=== PATIENT | male | born 1945 | race Caucasian/White ===

== ENCOUNTER 2016-07-25 15:38 | Inpatient (IN) | payer OTHER, BC ==
[~2016-07-25] VITALS: Ht 175.3 cm; Wt 63.5 kg
--- NOTE | ~2016-07-25 | EKG ---
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 : 1945 Requested By: Olaf Stapleton Order Number: [id number] MD: Juventino Mcmanus Measurements Intervals [place] Rate: 84 P: 79 UT: 136 QRS: 91 QRSD: 84 T: 76 QT: 350 QTc: 414 Interpretive Statements Sinus rhythm Low voltage with right axis deviation Minimal ST elevation, inferior leads No previous ECG available for comparison Electronically Signed On 07-26-2016 8:59:18 CDT by Juventino Mcmanus [email or web address] <ELECTRONICALLY SIGNED> By: Juventino Mcmanus MD, [facility] 07/26/16 0859 D: [id number] Juventino Mcmanus MD, FACC /EPI
--- NOTE | ~2016-07-25 | EKG ---
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1945 Requested By: Chino Lockett Order Number: [id number] MD: Juventino Mcmanus Measurements Intervals [place] Rate: 114 P: 71 HI: 123 QRS: 92 QRSD: 87 T: 78 QT: 305 QTc: 421 Interpretive Statements Sinus tachycardia Artifact in multiple lead(s) Poor R-wave progression Compared to ECG 07/25/2016 16:07:08 probably no differences, allowing for marked baseline artifact Electronically Signed On 07-31-2016 12:59:11 CDT by Juventino Mcmanus [email or web address] <ELECTRONICALLY SIGNED> By: Juventino Mcmanus MD, [facility] 07/31/16 1259 0810 0810 Juventino Mcmanus MD, [facility] /EPI
--- NOTE | ~2016-07-25 | HC ---
[facility] [place] [address] CONSULTATION Name: MARCIA MARCANO Room #: 461- ADM IN M.R.#: [id number] Admission: 07/25/16 Attend Phys: Chino Lockett MD Discharge: Date of : 41 Report #: [id number] THIS REPORT FOR: //name// CC: Marcia Rosario DATE OF SERVICE: 07/31/2016 PULMONARY CONSULTATION PRIMARY CARE PHYSICIAN: Dr. Moose Rosario. REFERRAL PHYSICIAN: Triston Leung M.D. REASON FOR REFERRAL: Acute respiratory failure. HISTORY OF PRESENT ILLNESS: The patient is a 71-year-old white male with known COPD, presents to the Emergency Room with progressive dyspnea. A pulmonary consultation was requested and patient developed worsening hypoxia since admission. The patient has known COPD. He is normally followed by Dr. Portillo longitudinally. Review of his prior chest CT shows diffuse bullous disease suggestive of emphysema in type. The patient has smoked, but quit many years ago. Normally, he is on Spiriva, Breo, Ventolin. Patient is on 2 liters of O2 chronically. He was in his usual state of health until about 2 weeks prior to presentation when he started to develop congestion, rhinorrhea, but he thinks this started when he was out in the cold when the weather changed. He then developed a productive cough of purulent sputum. He was admitted 07/25/2016. Earlier today, following a nebulized treatment, the patient states that he began to feel jittery, nervous, anxious and then subsequently developed progressive dyspnea. He was also borderline hypotensive. He was transferred to the ICU. The patient otherwise denies any chest pain, hemoptysis. Denies any past history of venous thromboembolic disease. His serum creatinine is 1.4. He is better now on noninvasive positive pressure ventilation. PAST MEDICAL HISTORY: Notable for COPD as mentioned above, severity unknown, he is on 2 liters of O2 for the past 2 years. Past history of tobacco use, but [facility] [address] [place] [address] CONSULTATION Name: MARCIA MARCANO Room #: [address] [place] [address] [place] ..#: [id number] Admission: 07/25/16 Attend Phys: Chino Lockett MD Discharge: Date of : 41 Report #: [id number] quit smoking 14 years ago. He has a history of hypotension. PAST SURGICAL HISTORY: Noncontributory. HOME MEDICATIONS: As mentioned above along with lisinopril/hydrochlorothiazide. FAMILY HISTORY: Noncontributory. SOCIAL HISTORY: Tobacco, as mentioned above. He is and lives with his . He drinks rarely. REVIEW OF SYSTEMS: As mentioned above, otherwise 10-point system review negative. PHYSICAL EXAMINATION: GENERAL: He is alert, oriented x 3, in moderate distress. VITAL SIGNS: Temperature is 98.2 degrees Fahrenheit, pulse is 110. Respiratory rate is 26, blood pressure is 108/58 mmHg, saturation 98%. HEENT: Normocephalic, atraumatic. NECK: Supple, without any lymphadenopathy or thyromegaly. CHEST: Breath sounds are decreased bilaterally with moderately prolonged expiratory phase. Mild expiratory wheezes are noted. CARDIOVASCULAR: Normal S1, S2. No murmurs or gallop. There is no JVD. There is no carotid bruit and pulses are 2+/4+ bilaterally. ABDOMEN: Soft, nontender, no organomegaly or masses felt. EXTREMITIES: There is no edema, cyanosis or clubbing. NEUROLOGIC: He is grossly intact. LABORATORY DATA: Chest x-ray shows hyperextended lung aleman without any obvious infiltrates. Leg Doppler ultrasound was negative for DVT, baseline creatinine appears to be 1.4. His previous creatinine from 2012 was 1.6, WBC is 17,600, hemoglobin is 12.0, platelets are normal. Albumin 3.9. Arterial blood gas earlier today revealed pH 7.31, pCO2 of 66, pO2 90 on 8 liters of O2. IMPRESSION: 1. Acute respiratory distress in this 71-year-old white male with COPD. His acute distress may be related to worsening exacerbation of COPD. No obvious pneumonia. Pulmonary embolus is felt to be less likely as the patient has been on DVT prophylaxis. It is unclear if nebulized therapy may be causing paradoxical worsening of dyspnea and bronchospasm. We will observe closely. 2. COPD, severity unknown, with exacerbation. 3. Chronic kidney insufficiency. As mentioned above, I do not think the patient has pulmonary embolus. Leg Doppler ultrasound is negative. With chronic kidney disease, this would rule out doing CT chest angiogram for now. RECOMMENDATION: We will continue noninvasive positive pressure ventilation as [address] [address] CONSULTATION Name: MARCIA MARCANO Room #: 461-P ADM IN M.R.#: [id number] Admission: 07/25/16 Attend Phys: Chino Lockett MD Discharge: Date of : 41 Report #: [id number] needed, increase corticosteroids. We will continue nebulized bronchodilator therapy and observe closely to see if in fact it is causing paradoxical bronchospasm. Would also try to keep saturation around 88-90% as this may cause paradoxical worsening of hypercapnia. We will continue doxycycline for now. In terms of borderline hypotension, this may be related to increased intrathoracic pressure resulting in decrease cardiac output. I do not think it is related to pulmonary embolus or with a negative Doppler ultrasound along with patient being on DVT prophylaxis. We will continue to monitor hypotension closely. If the patient becomes persistently hypotensive, we may consider doing a ventilation perfusion scan and echocardiogram. DVT and GI prophylaxis will be addressed. Thank you for this consultation. <ELECTRONICALLY SIGNED> By: Modesto Lynch MD 08/02/16 1146 1107 2232 Modesto Lynch MD /nt
--- NOTE | ~2016-07-25 | H ---
[facility] [place] [address] HISTORY AND PHYSICAL Name: MARCIA MARCANO Room #: 459-P ADM IN M.R.#: [id number] Admission: 07/25/16 Attend Phys: Abdulkadir Blood MD Discharge: Date of : 41 Report #: [id number] THIS REPORT FOR: //name// CC: Abdulkadir Connelly MD DATE OF SERVICE: 07/25/2016 PRIMARY CARE DOCTOR: Juwna Connelly MD. CHIEF COMPLAINT: Shortness of breath. HISTORY OF PRESENT ILLNESS: The patient is a 71-year-old male with a history of chronic respiratory failure on 2 liters of home O2, COPD, followed by Dr. Jovanny Portillo, presented to the ER secondary to shortness of breath. He indicates that symptoms started about 2 weeks ago and then progressively worsened. He has used his inhalers at home without any complete relief. He is also reporting sinus drainage, productive cough with ongoing mucous, but no fever or chills. Symptoms are worse with exertion. He finally came to the ER and was found to desaturate in to 80s on 2 liters with ambulation. I was asked to admit him for further management and care. He quit smoking about 14 years ago and has been on oxygen now for 2 years. He denies any other medical problems including heart problems. PAST MEDICAL HISTORY: COPD and hypertension. MEDICATIONS: He is on Spiriva one inhalation daily, Breo one inhalation daily, and albuterol p.r.n., lisinopril/hydrochlorothiazide 20/12.5 one daily. ALLERGIES: None. SOCIAL HISTORY: He quit smoking 14 years ago, was smoking 2 packs per day and drinks very infrequently, lives with his locally. REVIEW OF SYSTEMS: A 14-point review of system was conducted, all negative except for above. ALLERGIES: None. FAMILY HISTORY: Reviewed and noncontributory. PHYSICAL EXAMINATION: VITAL SIGNS: Temperature of 98, pulse of 91, blood pressure of 152/84, O2 sat 95% on 2 liters. GENERAL: He is awake, alert, answering questions appropriately, in no acute [facility] [address] [place] [address] HISTORY AND PHYSICAL Name: MARCIA MARCANO Room #: 459-P [facility] IN M.R.#: [id number] Admission: 07/25/16 Attend Phys: Abdulkadir Blood MD Discharge: Date of : 41 Report #: [id number] respiratory distress. HEENT: Normocephalic and atraumatic. Pupils are equal. NECK: Supple. CARDIOVASCULAR: Regular rate and rhythm. No murmurs. LUNGS: Clear to auscultation bilaterally. Decreased at the bases, occasional wheeze, coarse breath sounds. ABDOMEN: Soft. No distention, no tenderness. EXTREMITIES: No edema. NEUROLOGIC: Nonfocal. LABS AND TESTING: Influenza was negative. CMP: Sodium 136, potassium 4.9, BUN and creatinine 19 and 1.2, total CO2 of 33. LFTs are negative. White count of 9.1, H and H of 12 and 38. MCV of 84. Chest x-ray was negative for anything acute. EKG: Normal sinus rhythm at rate 84. ASSESSMENT AND PLAN: 1. Chronic obstructive pulmonary disease exacerbation. We will continue aggressive pulmonary toiletry, O2 support, and steroids. 2. Upper respiratory infection. We will start doxycycline and also some cold and sinus medications. 3. Hypertension. Continue home meds with holding parameters. 4. Deep venous thrombosis prophylaxis with Lovenox. By: [id number] [id number] Edwina Blood MD /nt
--- NOTE | ~2016-07-25 | 2DMMODE ---
[facility] [address] [place] [address] 2 D/M-MODE ECHOCARDIOGRAM Name: MARCIA MARCANO JAQUELINE Room #: 237-P ADM IN M.R.#: [id number] Admission: 07/25/16 Attend Phys: Lori Faye Discharge: Date of : 41 Date of Service: 08/01/16 1128 Report #: [id number] THIS REPORT FOR: //name// APPROVED REPORT Study performed: 08/01/2016 09:23:23 EXAM: Comprehensive 2D, Doppler, and color-flow Echocardiogram Patient Location: ICU Room #: 237 Blood Pressure: 131/70 mmHg HR: 100 bpm Other Information Study Quality: Fair Indications Pulmonary Embolism COPD Echo Enhancing Agent Indication: Endocardial border delineation Agent/Amount Used: Definity 2 cc 2D Dimensions LVEF(%): 65.32 (>50%) IVSd: 7.88 (7-11mm) LVOT Diam: 20.46 (18-24mm) LVDd: 44.74 mm PWd: 8.02 (7-11mm) Ascending Ao: 34.67 (22-36mm) LVDs: 28.78 (25-40mm) Aortic Root: 31.11 mm IVC: 19.00 mm Hung's LVEF: 65.32 % Aortic Valve AoV Peak Ton.: 1.16 m/s AO Peak Gr.: 5.41 mmHg LVOT Max P.11 mmHg LVOT Max V: 1.01 m/s Mitral Valve E/A Ratio: 0.8 MV Decel. Time: 398.89 ms MV E Max Ton.: 0.80 m/s [facility] [address] [place] [address] 2 D/M-MODE ECHOCARDIOGRAM Name: MARCIA MARCANO Room #: 237-P ADM IN .R.#: [id number] Admission: 07/25/16 Attend Phys: Lori Faye Discharge: Date of : 41 Date of Service: 08/01/16 1128 Report #: [id number] MV A Ton.: 1.04 m/s MV PHT: 115.68 ms Pulmonary Valve PV Peak Ton.: 1.14 m/s PV Peak Gr.: 5.17 mmHg Pulmonary Vein P Vein S: 40.6 m/s P Vein D: 24.7 m/s P Vein A Dur.: 28.2 m/s Tricuspid Valve RAP Estimate: 5.00 mmHg Left Ventricle The left ventricle is normal size. There is normal left ventricular wall thickness. The left ventricular systolic function is normal. The left ventricular ejection fraction is within the normal range. LVEF is 60-65%. Grade I - abnormal relaxation pattern. Right Ventricle The right ventricle is normal size. The right ventricular systolic function is normal. Atria The left atrium size is normal. The right atrium size is normal. Aortic Valve The aortic valve is normal in structure. No aortic regurgitation is present. There is no aortic valvular stenosis. Mitral Valve The mitral valve is normal in structure. There is no mitral valve regurgitation noted. No evidence of mitral valve stenosis. Tricuspid Valve The tricuspid valve is normal in structure. There is no tricuspid valve regurgitation noted. Pulmonic Valve The pulmonary valve is normal in structure. There is no pulmonic valvular regurgitation. Great Vessels The aortic root is normal in size. IVC is normal in size and collapses >50% with inspiration. [facility] [employer] [place] [address] 2 D/M-MODE ECHOCARDIOGRAM Name: MARCIA MARCANO Room #: 237-P ADM IN M.R.#: [id number] Admission: 07/25/16 Attend Phys: Lori Faye Discharge: Date of : 41 Date of Service: 08/01/16 1128 Report #: [id number] Pericardium There is no pericardial effusion. <Conclusion> The left ventricle is normal size. LVEF is 60-65%. The aortic valve is normal in structure. The mitral valve is normal in structure. The tricuspid valve is normal in structure. The pulmonary valve is normal in structure. <ELECTRONICALLY SIGNED> By: Teddy Galicia MD 08/01/16 1128 1128 1128 Teddy Galicia MD /INF
[2016-07-25 15:43] VITALS: BP 174/69
[2016-07-25] MEDS ORDERED: BREO ELLIPTA 11 EACH IH (15:47)
[2016-07-25] MEDS ORDERED: SPIRIVA RESPIMAT4 GM IH (15:47)
[2016-07-25] MEDS ORDERED: VENTOLIN HFA 1818 GM INH (15:47)
[2016-07-25] MEDS ORDERED: LISINOPRIL-HCT1 EAC1 PO (15:47)
[2016-07-25 16:08] LABS: HEMATOCRIT 38.3 % (42.0-52.0); HEMOGLOBIN 12.9 gm/dL (14.0-18.0); MCH 28.3 pg (26.0-34.0); MCHC 33.7 g/dL (28.0-37.0); MCV 84.1 fL (80.0-100.0); PLATELET COUNT 323 thou/uL (150-400); RBC 4.55 mil/uL (4.50-6.00); RDW 13.4 % (10.5-14.5); WBC 9.1 thou/uL (4.0-11.0)
[2016-07-25 16:17] LABS: MANUAL DIFF YES
[2016-07-25 16:24] LABS: ANION GAP 7 mmol/L (7-16); BUN 19 mg/dL (7-18); CALCIUM 9.4 mg/dL (8.5-10.1); CHLORIDE 96 mmol/L (98-107); CO2 33 mmol/L (21-32); CREATININE 1.2 mg/dL (0.7-1.3); GLUCOSE 101 mg/dL (74-106); POTASSIUM 4.9 mmol/L (3.5-5.1); SODIUM 136 mmol/L (136-145)
[2016-07-25 16:29] LABS: ABSOLUTE NEUTROPHILS 7.1 thou/uL (1.4-8.2); TOTAL CELL COUNT 100
[2016-07-25 16:32] LABS: ALBUMIN 3.9 g/dL (3.4-5.0); ALKALINE PHOSPHATASE 74 U/L (46-116); SGOT 27 U/L (15-37); SGPT 20 U/L (30-65); TOTAL BILIRUBIN 0.4 mg/dL (<0.1-1.0); TOTAL PROTEIN 7.7 g/dL (6.4-8.2); TROPONIN-I < 0.04 ng/mL (<0.04-0.07)
[2016-07-25 18:40] VITALS: BP 129/76
[2016-07-25 22:27] LABS: TROPONIN-I < 0.04 ng/mL (<0.04-0.07)
[2016-07-25 23:44] VITALS: BP 111/72
[2016-07-26 06:04] LABS: HEMATOCRIT 35.6 % (42.0-52.0); HEMOGLOBIN 11.9 gm/dL (14.0-18.0); MCHC 33.3 g/dL (28.0-37.0); PLATELET COUNT 317 thou/uL (150-400); RBC 4.24 mil/uL (4.50-6.00); RDW 13.9 % (10.5-14.5); WBC 5.5 thou/uL (4.0-11.0)
[2016-07-26 06:11] VITALS: BP 133/71
[2016-07-26 06:19] LABS: CALCIUM 9.1 mg/dL (8.5-10.1); CREATININE 1.5 mg/dL (0.7-1.3); POTASSIUM 4.7 mmol/L (3.5-5.1)
[2016-07-26 06:33] LABS: MANUAL DIFF YES
[2016-07-26 07:16] VITALS: BP 120/72
[2016-07-26 08:43] LABS: ATYPICAL LYMPHS 1 %; TOTAL CELL COUNT 100
[2016-07-26 11:21] VITALS: BP 130/58
[2016-07-26 15:41] VITALS: BP 138/63
[2016-07-26 19:48] VITALS: BP 153/72
[2016-07-27 02:57] VITALS: BP 113/62
[2016-07-27 07:21] LABS: HEMOGLOBIN 11.8 gm/dL (14.0-18.0); MCHC 33.6 g/dL (28.0-37.0); MCV 83.3 fL (80.0-100.0); PLATELET COUNT 353 thou/uL (150-400); RDW 13.3 % (10.5-14.5)
[2016-07-27 07:24] VITALS: BP 123/56
[2016-07-27 07:35] LABS: CREATININE 1.4 mg/dL (0.7-1.3)
[2016-07-27 07:37] LABS: MANUAL DIFF YES
[2016-07-27 07:38] LABS: WBC 24.9 thou/uL (4.0-11.0)
[2016-07-27 08:02] LABS: ABSOLUTE NEUTROPHILS 24.4 thou/uL (1.4-8.2); TOTAL CELL COUNT 100
[2016-07-27 08:03] LABS: ANISOCYTOSIS SLIGHT
[2016-07-27 11:16] VITALS: BP 133/62
[2016-07-27 15:25] VITALS: BP 142/68
[2016-07-27 19:19] VITALS: BP 163/71
[2016-07-28 04:09] VITALS: BP 154/85
[2016-07-28 06:25] LABS: HEMATOCRIT 38.7 % (42.0-52.0); HEMOGLOBIN 13.1 gm/dL (14.0-18.0); MCHC 33.8 g/dL (28.0-37.0); MCV 82.7 fL (80.0-100.0); PLATELET COUNT 389 thou/uL (150-400); RBC 4.68 mil/uL (4.50-6.00); RDW 13.1 % (10.5-14.5); WBC 26.5 thou/uL (4.0-11.0)
[2016-07-28 06:35] LABS: CREATININE 1.4 mg/dL (0.7-1.3); MANUAL DIFF YES; POTASSIUM 4.9 mmol/L (3.5-5.1)
[2016-07-28 08:33] VITALS: BP 131/87
[2016-07-28 09:23] LABS: ABSOLUTE NEUTROPHILS 24.6 thou/uL (1.4-8.2); PLATELET ESTIMATE NORMAL; TOTAL CELL COUNT 100
[2016-07-28 12:15] VITALS: BP 141/54
[2016-07-28 16:00] VITALS: BP 131/81
[2016-07-28 19:35] VITALS: BP 160/78
[2016-07-29] VITALS (7 sets, daily range): BP systolic 141–162; BP diastolic 71–93
[2016-07-30 04:17] VITALS: BP 152/89
[2016-07-30 07:26] VITALS: BP 149/95
[2016-07-30 11:24] VITALS: BP 133/80
[2016-07-30 15:39] VITALS: BP 148/74
[2016-07-30 20:12] VITALS: BP 128/75
[2016-07-31] VITALS (50 sets, daily range): BP systolic 58–135; BP diastolic 41–111
[2016-07-31 05:05] LABS: HEMATOCRIT 36.8 % (42.0-52.0); HEMOGLOBIN 12.5 gm/dL (14.0-18.0); MCH 27.7 pg (26.0-34.0); MCHC 33.9 g/dL (28.0-37.0); MCV 81.7 fL (80.0-100.0); RBC 4.51 mil/uL (4.50-6.00); RDW 13.4 % (10.5-14.5); WBC 17.9 thou/uL (4.0-11.0)
[2016-07-31 05:16] LABS: CALCIUM 8.8 mg/dL (8.5-10.1); CREATININE 1.4 mg/dL (0.7-1.3); POTASSIUM 4.5 mmol/L (3.5-5.1)
[2016-07-31 07:42] LABS: ABG SAMPLE TYPE ARTERIAL; BE(vivo) 5.1 mmol/L (-2 to +3); HCO3 33.4 mmol/L (22.0-26.0); LACTATE 3.29 mmol/L (0.5-2.0); O2(CT) 18.6 mL/dL (15.0-23.0); PO2 98.5 mmHg (80.0-100.0); sO2 96.8 % (92.0-98.0); tCO2 35.4 mmol/L (24.0-30.0)
[2016-07-31 07:43] LABS: PCO2 66.7 mmHg (35.0-45.0); pH 7.317 (7.360-7.450)
[2016-07-31 09:56] LABS: HEMATOCRIT 35.3 % (42.0-52.0); MCV 82.5 fL (80.0-100.0); RBC 4.28 mil/uL (4.50-6.00); RDW 13.3 % (10.5-14.5); WBC 17.6 thou/uL (4.0-11.0)
[2016-08-01] VITALS (20 sets, daily range): BP systolic 72–147; BP diastolic 39–78
[2016-08-01 06:18] LABS: HEMATOCRIT 32.9 % (42.0-52.0); MCHC 33.5 g/dL (28.0-37.0); MCV 83.6 fL (80.0-100.0); RBC 3.94 mil/uL (4.50-6.00); RDW 13.5 % (10.5-14.5); WBC 16.8 thou/uL (4.0-11.0)
[2016-08-01 06:28] LABS: CREATININE 1.2 mg/dL (0.7-1.3); POTASSIUM 4.8 mmol/L (3.5-5.1)
[2016-08-02 04:03] VITALS: BP 157/67
[2016-08-02 04:39] LABS: HEMATOCRIT 32.3 % (42.0-52.0); HEMOGLOBIN 10.8 gm/dL (14.0-18.0); MCH 28.1 pg (26.0-34.0); MCHC 33.5 g/dL (28.0-37.0); MCV 83.9 fL (80.0-100.0); RBC 3.85 mil/uL (4.50-6.00); RDW 13.3 % (10.5-14.5); WBC 20.3 thou/uL (4.0-11.0)
[2016-08-02 04:52] LABS: CALCIUM 8.1 mg/dL (8.5-10.1); CREATININE 1.3 mg/dL (0.7-1.3); POTASSIUM 4.1 mmol/L (3.5-5.1)
[2016-08-02 07:38] VITALS: BP 139/52
[2016-08-02 12:02] VITALS: BP 155/66
[2016-08-02 15:00] VITALS: BP 148/75
[2016-08-02 19:16] VITALS: BP 153/67
[2016-08-03 04:19] VITALS: BP 150/86
[2016-08-03 07:49] VITALS: BP 139/53
[2016-08-03 11:00] VITALS: BP 150/73
[2016-08-03 16:42] VITALS: BP 154/78
[2016-08-03 19:55] VITALS: BP 159/80
[2016-08-04 04:06] VITALS: BP 144/77
[2016-08-04 07:29] VITALS: BP 158/94
[2016-08-04] MEDS ORDERED: CLARITIN-D 12 H1 TA1 PO (09:42)
[2016-08-04] MEDS ORDERED: DOXYCYCLINE 10100 MG PO (09:42)
[2016-08-04] MEDS ORDERED: FLOMAX0.4 MG PO (09:43)
[2016-08-04] MEDS ORDERED: ACCUPRIL40 MG PO (09:43)
[2016-08-04] MEDS ORDERED: DUONEB 2.5-0.5 M3 ML INH (09:43)
[2016-08-04] MEDS ORDERED: MUCINEX TA600 MG/TA1 PO (09:44)
[2016-08-04] MEDS ORDERED: COLACE 100 MG100 MG PO (09:44)
[2016-08-04] MEDS ORDERED: ACETAMINOPHEN325 M1 PO (09:44)
[2016-08-04] MEDS ORDERED: HYDROCHLOROTH12.5 M1 PO (09:44)
[2016-08-04] MEDS ORDERED: NEXIUM40 MG PO (09:45)
[2016-08-04] MEDS ORDERED: PREDNISONE 20 M20 MG PO (09:46)
[2016-08-04 14:03] VITALS: BP 146/89
[2016-08-04 17:58] VITALS: BP 155/74
== END 2016-08-04 18:35 | DRG 871 ==
LOC: ER 15:38 → EROBS 17:15 → 4W 17:15 → ICU 17:15 → 4W 18:03 → ICU 07-31 08:35 → 4W 08-01 15:14
PROVIDERS: Family Medicine; Internal Medicine Pulmonary Disease; Physician Assistant
PROC: 5A09357 Assistance with Respiratory Ventilation, Less than 24 Consecutive Hours, Continuous Positive Airway Pressure (ICD-10-PCS; principal; 2016-07-31)
PROC: 02HV33Z Insertion of Infusion Device into Superior Vena Cava, Percutaneous Approach (ICD-10-PCS; 2016-07-31)
PROC: B5181ZA Fluoroscopy of Superior Vena Cava using Low Osmolar Contrast, Guidance (ICD-10-PCS; 2016-07-31)
DX: A41.9 Sepsis, unspecified organism (principal); J96.22 Acute and chronic respiratory failure with hypercapnia; J96.21 Acute and chronic respiratory failure with hypoxia; N17.1 Acute kidney failure with acute cortical necrosis; J44.1 Chronic obstructive pulmonary disease with (acute) exacerbation; E87.1 Hypo-osmolality and hyponatremia; J06.9 Acute upper respiratory infection, unspecified; R33.9 Retention of urine, unspecified; I95.9 Hypotension, unspecified; D72.829 Elevated white blood cell count, unspecified; N18.9 Chronic kidney disease, unspecified; I12.9 Hypertensive chronic kidney disease with stage 1 through stage 4 chronic kidney disease, or unspecified chronic kidney disease; N40.0 Benign prostatic hyperplasia without lower urinary tract symptoms; F41.9 Anxiety disorder, unspecified; Z87.891 Personal history of nicotine dependence; Z79.899 Other long term (current) drug therapy
CPT/HCPCS: 10045; 10203; 27000